=== PATIENT | male | born 1970 | race Caucasian/White ===

== ENCOUNTER 2017-08-15 10:34 | Emergency (ER) | payer OTHER ==
[2017-08-15 10:40] VITALS: TEMP 97.7
[2017-08-15] MEDS ORDERED: OXYCODONE/APAP 5/325 TAB PO ONE (10:48)
[2017-08-15] MEDS ORDERED: ONDANSETRON 4 MG/2 ML VIAL ONE (10:58)
[2017-08-15] MEDS ORDERED: fentaNYL 100 MCG/2 ML INJ ONE (10:58)
[2017-08-15] MEDS ORDERED: fentaNYL 100 MCG/2 ML INJ IVP ONE ×2 (11:06→11:53)
[2017-08-15] MEDS ORDERED: ONDANSETRON 4 MG/2 ML VIAL IVP ONE (11:06)
[2017-08-15] MEDS ORDERED: LORazepam 2 MG/ML INJ IVP ONE (11:14)
--- NOTE | 2017-08-15 11:36 | EDPHY ---
H & P Stated Complaint: FALL/PROBABLE SHOULDER DISLOCATION - Personal History Current Tetanus/Diphtheria Vaccine: Yes - Medical/Surgical History Hx Asthma: No Hx Chronic Respiratory Disease: No Hx Diabetes: No Hx Cardiac Disease: No Hx Renal Disease: No Hx Cirrhosis: No Hx Alcoholism: No Hx HIV/AIDS: No Hx Splenectomy or Spleen Trauma: No Other PMH: DENIES - Social History Smoking Status: Former smoker HPI/ROS: Chief complaint: Right shoulder injury History of present illness: This is a 46-year-old male who presents to the emergency department for a right shoulder injury. Patient reports just prior to arrival patient slipped on the ice landing onto his right shoulder. Since then he has had pain in the shoulder and cannot move it. Reports he has some numbness over the right deltoid region. He denies associated signs or symptoms including no open wounds. No report of trauma to the head, neck, chest or other parts of the body. Review of systems: A 10 point review of systems was obtained and other than described above was negative (Yobani Rivero) - Physical Exam Exam: General Appearance: Alert. Nontoxic. Eyes: PERRLA ENT: No hemotympanum, no hartley sign, no raccoon eyes Respiratory: Lungs clear to auscultation bilaterally Cardiac: Regular rate and rhythm. Gastrointestinal: Bowel sounds normal. Abdomen soft, nondistended, nontender. Neurological: Alert and oriented x4. Strength is intact and symmetrical. Patient does report decreased sensation over the right deltoid region. The rest the extremities with normal sensation. Skin: No open wounds on inspection of the right upper extremity. Musculoskeletal: The head is nontender without crepitus or bony deformity. The spine is nontender to palpation along its entire length without crepitus, bony deformity or step-off. Chest wall intact to palpation. Tenderness to the right shoulder with obvious defect of the glenohumeral joint. He cannot move the right shoulder because of pain. Rest of the right upper extremity and other extremities are unremarkable. (Yobani Rivero) Constitutional: Initial Vital Signs Temperature (C) 36.5 C 08/15/17 10:38 Heart Rate 107 H 08/15/17 10:38 Respiratory Rate 18 08/15/17 10:38 Blood Pressure 142/109 H 08/15/17 10:38 O2 Sat (%) 100 08/15/17 10:38 O2 Delivery Mode Room Air Allergies/Adverse Reactions: Penicillins Allergy (Verified 08/15/17 10:37) Home Medications: Medication Instructions Recorded Hydrocodone/APAP 5/325 [[place] 1 tab PO Q6 #10 tab 08/15/17 5/325 (*)] Medical Decision Making - Diagnostics Imaging: I viewed and interpreted images myself Procedures: Procedure: Dislocation reduction. The dislocation of the right shoulder was reduced using massage and traction technique without complications. Post reduction the patient's neurovascular exam is normal. Post reduction x-ray demonstrates reduction of the joint to the anatomic position. The procedure was performed by myself. Procedure: Splint placement. A sling splint was applied. After application of the splint I returned and re- examined the patient. The splint was adequately immobilizing the joint and distal to the splint the patient's circulation and sensation was intact. (Yobani Rivero) ED Course/Re-evaluation: Patient is seen under the supervision of my secondary supervising physician Dr. Yesenia Cool. Patient presents to the emergency department for a right shoulder injury. There is some decreased sensation on initial evaluation although he has good vascular status. X-ray confirms a right anterior dislocation. This is reduced as per above. Post treatment patient is feeling better with increased sensation in his right arm. He will be discharged. He will be asked to follow-up with an orthopedic this week for recheck. Return precautions are given. The patient voiced understanding and agreement with plan. (Yobani Rivero) The patient was evaluated and managed by the physician dairy and food laboratory assistant. I have reviewed this chart and I agree with the findings and plan of care as documented , as indicated by my signature. I am the secondary supervising physician. ( Yesenia Cool) Differential Diagnosis: Included but not limited to contusion, sprain or strain, labral injury, rotator cuff injury, bony fracture, joint dislocation (Yobani Rivero) - Data Points Medications Given: Discontinued Medications Fentanyl (Sublimaze) 100 mcg IVP EDNOW ONE Stop: 08/15/17 11:07 Last Admin: 08/15/17 11:08 Dose: 100 mcg Fentanyl (Sublimaze) 100 mcg IVP EDNOW ONE Stop: 08/15/17 11:54 Last Admin: 08/15/17 12:00 Dose: 100 mcg Lorazepam (Ativan Injection) 1 mg IVP EDNOW ONE Stop: 08/15/17 11:15 Last Admin: 08/15/17 11:30 Dose: 1 mg Ondansetron HCl (Zofran) 4 mg IVP EDNOW ONE Stop: 08/15/17 11:07 Last Admin: 08/15/17 11:08 Dose: 4 mg Oxycodone/Acetaminophen (Percocet 5/325) 2 tab PO EDNOW ONE Stop: 08/15/17 10:49 Last Admin: 08/15/17 11:40 Dose: Not Given Departure - Departure Disposition: Home, Routine, Self-Care Clinical Impression: Shoulder dislocation Condition: Good Instructions: Shoulder Dislocation (ED) Additional Instructions: Follow-up with an orthopedic doctor for continued evaluation and care In regards to pain control see the following: Use ibuprofen [600] mg [3] times a day for the next 2-3 days for pain In addition You have been prescribed [[place]] for pain. [[place]] contains Tylenol, do not take extra Tylenol/acetaminophen/Apap/paracetamol with it. It is sedating. If symptoms worsen or new symptoms develop return to the emergency room for recheck Referrals: NONE *PRIMARY CARE P,. [Primary Care Provider] - As per Instructions Randall Serna MD [Medical Doctor] - As per Instructions Prescriptions: Hydrocodone/APAP 5/325 [[place] 5/325 (*)] 1 tab PO Q6 #10 tab
[2017-08-15 13:04] VITALS: BP 125/84; PULSE 77; RESP 14; O2SAT 93
== END 2017-08-15 13:04 | disposition home or self-care (01) ==
PROC: 0RSJXZZ Reposition Right Shoulder Joint, External Approach (ICD-10-PCS; principal; 2017-08-15)
DX: S43.004A Unspecified dislocation of right shoulder joint, initial encounter (principal); Z87.891 Personal history of nicotine dependence; W00.0XXA Fall on same level due to ice and snow, initial encounter
CPT/HCPCS: 96374; A4565; J2060; J2405; J3010